=== PATIENT | male | born 1980 | race Two or more races ===

== ENCOUNTER 2021-08-13 01:09 | Inpatient (IN) | payer OTHER ==
[~2021-08-13] VITALS: Ht 165.1 cm; Wt 86.4 kg
[2021-08-13 08:41] LABS: BASOPHILS % (AUTO) 0.6 % (0.0-2.0); EOSINOPHILS % (AUTO) 3.3 % (1.0-6.0); HEMATOCRIT 42.2 % (41-53); HEMOGLOBIN 14.9 g/dL (13.5-17.5); LYMPHOCYTES # (AUTO) 1.5 K/uL (1.0-4.8); LYMPHOCYTES % (AUTO) 23.1 % (22.0-44.0); MEAN CORPUSCULAR HEMOGLOBIN 33.1 pg (26.0-34.0); MEAN CORPUSCULAR HGB CONC 35.4 G/dL (31.0-37.0); MEAN CORPUSCULAR VOLUME 94 fL (80-100); MONOCYTES # (AUTO) 0.4 K/uL (0.1-1.0); NEUTROPHILS # (AUTO) 4.5 K/uL (1.8-7.7); PLATELET COUNT (AUTO) 339 K/uL (150-450); RED BLOOD CELL COUNT(AUTO) 4.51 MIL/uL (4.50-5.90); RED CELL DISTRIBUTION WIDTH 12.6 % (11.5-14.5)
[2021-08-13 08:50] LABS: ANION GAP 9 mmol/L (8-16); CALCIUM, TOTAL 9.3 mg/dL (8.8-10.5); CARBON DIOXIDE 28 mmol/L (22-29); CHLORIDE 103 mmol/L (98-107); CREATININE 0.83 mg/dL (0.60-1.30); GLOMERULAR FILTR. RATE CALC > 60 mL/min (>60); GLUCOSE,RANDOM 110 mg/dL (70-110); SODIUM SERUM 140 mmol/L (136-145); UREA NITROGEN, BLOOD 11 mg/dL (7-18)
[2021-08-13 08:57] LABS: ALANINE AMINOTRANSFERASE 58 U/L (12-78); ALBUMIN 4.5 g/dL (3.4-5.0); ALKALINE PHOSPHATASE 79 U/L (46-116); ASPARTATE AMINOTRANSFERASE 35 U/L (15-37); BILIRUBIN,TOTAL 0.4 mg/dL (0.1-1.0); TOTAL PROTEIN, SERUM 8.4 g/dL (6.4-8.2)
[2021-08-13 09:00] LABS: ACETAMINOPHEN < 2 mcg/mL (10-30)
[2021-08-13] MEDS ORDERED: ACETAMINOPHEN 325 MG TABLET PO PRN (09:00)
[2021-08-13] MEDS ORDERED: 0.9% SODIUM CHLORIDE 10 ML SYRINGE IVP PRN (09:00)
[2021-08-13] MEDS ORDERED: ONDANSETRON HCL 4 MG/2 ML VIAL IVP PRN (09:00)
[2021-08-13 09:12] LABS: SALICYLATE < 0.2 mg/dL (2.8-20.0)
[2021-08-13 09:19] LABS: COVID AG,FIA SOURCE NASOPHARYNGEAL
[2021-08-13 11:24] VITALS: BP 140/87
[2021-08-13 16:08] VITALS: BP 125/65
[2021-08-13 20:18] VITALS: BP 130/75
[2021-08-14 05:14] VITALS: BP 132/73
[2021-08-14 08:42] VITALS: BP 119/80
[2021-08-14] MEDS: SERTRALINE HCL 50 MG TABLET PO SCH (11:18)
[2021-08-14 15:13] VITALS: BP 124/82
[2021-08-14 20:06] VITALS: BP 117/77
[2021-08-15 05:04] VITALS: BP 137/80
[2021-08-15] MEDS: SERTRALINE HCL 50 MG TABLET PO SCH (08:05)
[2021-08-15 08:06] VITALS: BP 117/79
[2021-08-15 15:30] VITALS: BP 125/68
[2021-08-15 19:23] VITALS: BP 134/83
[2021-08-15] MEDS ORDERED: ZOLPIDEM TARTRATE 5 MG TABLET PO PRN (23:30)
[2021-08-16 08:24] VITALS: BP 141/86
[2021-08-16] MEDS: SERTRALINE HCL 50 MG TABLET PO SCH (08:53)
[2021-08-16] MEDS ORDERED: SERT-158 PO (10:54)
== END 2021-08-16 12:30 | DRG 885 ==
LOC: EMS 01:09 → 6S 10:30
PROVIDERS: ADMIT Hospitalist; ATTEND Hospitalist
DX: F33.2 Major depressive disorder, recurrent severe without psychotic features (principal); R45.851 Suicidal ideations; F15.10 Other stimulant abuse, uncomplicated; Z20.822 Contact with and (suspected) exposure to COVID-19
CPT/HCPCS: 80053; 85025; 99285; G0480; G0481